=== PATIENT | female | born 1960 | race Caucasian/White ===

== ENCOUNTER 2022-01-29 08:43 | Day surgery (SDC) | payer OTHER ==
[~2022-01-29] VITALS: Ht 154.9 cm; Wt 84.4 kg
[2022-01-29] MEDS ORDERED: fentaNYL citrate 0.05 MG/ML VIAL ONE (10:28)
[2022-01-29] MEDS ORDERED: diphenhydrAMINE 50 MG/ML VIAL ONE (10:28)
[2022-01-29] MEDS ORDERED: MIDAZOLAM 5 MG/5 ML VIAL ONE (10:28)
[2022-01-29] MEDS ORDERED: LIDOCAINE 2% 100 MG/5 ML UJET TP ONE (10:28)
[2022-01-29] MEDS ORDERED: MIDAZOLAM 2 MG/2 ML VIAL IVP ONE (12:25)
[2022-01-29] MEDS ORDERED: fentaNYL citrate 0.05 MG/ML VIAL IVP ONE (12:25)
== END 2022-01-29 12:13 | disposition home or self-care (01) ==
LOC: MOR 08:43 → MMU 08:44 → MOR 12:13
PROVIDERS: ATTEND Internal Medicine Gastroenterology
DX: Z12.11 Encounter for screening for malignant neoplasm of colon (principal); R10.13 Epigastric pain; R11.0 Nausea; K64.8 Other hemorrhoids; K44.9 Diaphragmatic hernia without obstruction or gangrene; I10 Essential (primary) hypertension; E11.9 Type 2 diabetes mellitus without complications; E78.00 Pure hypercholesterolemia, unspecified; J45.909 Unspecified asthma, uncomplicated; Z79.899 Other long term (current) drug therapy; Z20.822 Contact with and (suspected) exposure to COVID-19
CPT/HCPCS: 43239; 45378; 87426; J2250; J3010; J1200